=== PATIENT | female | born 1985 | race Caucasian/White ===

== ENCOUNTER 2017-01-26 18:17 | Emergency (ER) | payer OTHER ==
[~2017-01-26 18:17] MED LIST: AMOXICILLIN PO; BACTRIM DS TABL1 TA1 PO; BACTROBAN22 GM TP; BIRTH CONTROL PILL PO; CATAPRES0.1 MG; CELEXA20 MG PO; CLARITIN PO; CLEOCIN HCL300 M1 PO; EFFEXOR PO; EFFEXOR75 MG PO; FLAGYL250 M1 PO; FLEXERIL10 MG PO; IBUPROFEN PO; KEFLEX500 M1 PO; KEFLEX500 M2 PO; LISINOPRIL PO; LORTAB 7.5-3251 EACH PO; NAPROSYN500 MG PO; NO MEDICATIONS; NORCO1 TAB 10/3 PO; PREDNISONE10 MG/DOSE PO; PRENATAL MULTIV1 TA1; PRENATAL MULTIV1 TA1 PO; SEPTRA DS PO; SEROQUEL XR200 MG PO; SUDAFED PO; TESSALON200 MG PO; TYLENOL #3 PO; ULTRAM PO; ZOFRAN PO; ZOVIRAX800 MG PO
== END 2017-01-26 18:27 | disposition home or self-care (01) ==
LOC: SED 18:17
DX: J06.9 Acute upper respiratory infection, unspecified (principal); I10 Essential (primary) hypertension; Z90.49 Acquired absence of other specified parts of digestive tract; F17.210 Nicotine dependence, cigarettes, uncomplicated; Z88.2 Allergy status to sulfonamides; Z79.899 Other long term (current) drug therapy
CPT/HCPCS: 99282

== ENCOUNTER 2017-02-27 13:20 | Emergency (ER) | payer OTHER ==
[2017-02-27 14:18] LABS: INFLUENZA A NEG (NEG); INFLUENZA B NEG (NEG)
[2017-02-27 14:30] LABS: URINE SOURCE CLEAN CATCH
[2017-02-27 14:36] LABS: URINE APPEARANCE CLEAR; URINE BILIRUBIN NEG (NEG); URINE BLOOD NEG (NEG); URINE COLOR YELLOW; URINE GLUCOSE NEG (NEG); URINE KETONE NEG (NEG); URINE LEUKOCYTE ESTERASE NEG (NEG); URINE NITRATE NEG (NEG); URINE PROTEIN NEG (NEG); URINE SPECIFIC GRAVITY 1.012 (1.003-1.035)
[2017-02-27 14:40] LABS: CULTURE INDICATED? NO
== END 2017-02-27 14:56 | disposition home or self-care (01) ==
LOC: CED 13:20
PROVIDERS: Emergency Medicine
DX: R50.9 Fever, unspecified (principal); F32.9 Major depressive disorder, single episode, unspecified; Z90.49 Acquired absence of other specified parts of digestive tract; F17.210 Nicotine dependence, cigarettes, uncomplicated; Z88.2 Allergy status to sulfonamides; Z88.5 Allergy status to narcotic agent; Z79.899 Other long term (current) drug therapy
CPT/HCPCS: 81003; 84703; 87651; 87804; 99283

== ENCOUNTER 2017-03-04 20:47 | Emergency (ER) | payer OTHER ==
--- NOTE | ~2017-03-04 | CT2 ---
[facility] A Service of [facility] & [facility] RADIOLOGY TEXT RESULTS PATIENT: ANAT SANCHEZ LOCATION: [facility] : 81 UNIT #: [id number] AGE: [address]: Thomas Garcia MD SEX: F ORDER DR: [id number] [facility] [address] [place], [place] [address] [id number] MR#: [id number] Acc #: [id number] NAME: ANAT SANCHEZ : 1985 SEX: F STUDY DATE/TIME: 03/04/2017 22:47 UNIT: [facility] ROOM: STUDY DESCRIPTION: CT Abd and Pelv W Cont Attending Physician: Thomas Garcia M.D. Ordering Physician: Thomas Garcia M.D. Primary Care Physician: Panchito Vegas M.D. MEDICAL IMAGING REPORT This report is preliminary unless electronic signature is present EXAM CT abdomen and pelvis with contrast HISTORY Abdominal pain and nausea for one day. COMPARISON 03/15/2016 TECHNIQUE Axial 5 mm images were obtained of the abdomen and pelvis with IV contrast. The patient was given 100 mL of Isovue 370. This CT exam was performed with one or more of the following radiation dose reduction techniques: automatic exposure control, adjustment of mA and/or kV according to patient size, and iterative reconstruction. FINDINGS The lung bases are clear. The liver, gallbladder, spleen, pancreas, adrenal glands and kidneys are normal. The aorta is normal in size and there is no adenopathy. There is a small amount of fluid in the left upper quadrant around the spleen and left pericolic gutter. There is fluid filling the deep pelvis behind the uterus. This is uniform and low in density. The bowel appears normal. The uterus appears normal and no ovarian cysts are visible. The bones are unremarkable. IMPRESSION 1. The study is abnormal with fluid filling not only the pelvis behind the uterus, but also fluid is noted up around the spleen and the left pericolic gutter. The fluid is all uniform and low in density. A source of the fluid is not clear and in a patient of this age, a ruptured ovarian cyst may be the most likely cause of free fluid. 2. I do not see any evidence of bowel inflammation and there is no free STS. [facility] A Service of [facility] & [facility] RADIOLOGY TEXT RESULTS PATIENT: ANAT SANCHEZ LOCATION: [facility] : 81 UNIT #: [id number] AGE: [address]: Thomas Garcia MD SEX: F ORDER DR: . Dictated by... Darion Reddy M.D. THIS IS AN ELECTRONICALLY VERIFIED REPORT Darion Reddy M.D. at 03/05/2017 1:53 PM FEL/to TD: 03/05/2017 10:49 JOB #: [id number] MEDICAL IMAGING REPORT Page 1 of 1 COPY
[2017-03-04 22:01] LABS: BASOPHIL% 0.7 % (0-2.5); EOSINOPHIL# 0.2 X10e3 (0-0.7); EOSINOPHIL% 4.9 % (0.0-7.0); HEMATOCRIT 32.3 % (35.0-45.0); HEMOGLOBIN 11.2 gm/dL (12.0-16.0); LYMPHOCYTE# 1.5 X10e3 (1.0-3.5); MEAN CELL VOLUME 88.9 FL (83-96); MEAN CORPUSCULAR HEMOGLOBIN 30.9 PG (28-34); MEAN CORPUSCULAR HGB CONC 34.7 g/dL (30-36); MEAN PLATELET VOLUME 8.2 FL (6.5-11.5); MONOCYTE# 0.7 X10e3 (0-1.0); MONOCYTE% 13.1 % (3.0-12.0); NEUTROPHIL# 2.6 X10e3 (1.5-7.1); NEUTROPHIL% 51.3 % (40-75); PLATELET COUNT 193 X10e3 (140-420); RED BLOOD COUNT 3.63 X10e (3.90-5.30); RED CELL DISTRIBUTION WIDTH 12.3 % (11.0-15.5)
[2017-03-04 22:09] LABS: DIFF IND NO
[2017-03-04 22:39] LABS: ALBUMIN SERUM 3.8 g/dL (3.5-5.0); ALKALINE PHOSPHATASE 69 U/L (32-92); ALT (SGPT) 20 U/L (10-40); AMYLASE 17 U/L (0-46); AST (SGOT) 21 U/L (10-42); BILIRUBIN,TOTAL 0.3 mg/dL (0.2-2.0); BLOOD UREA NITROGEN 8 mg/dL (9-23); BUN/CREATININE RATIO 11.42; CARBON DIOXIDE 29 mmol/L (22-31); CHLORIDE 101 mmol/L (100-111); CREATININE SERUM 0.7 mg/dL (0.6-1.4); GLOM FILT RATE Estimated 113.8 mL/min (>60); GLUCOSE FASTING 96 mg/dL (70-110); LIPASE 17 U/L (22-51); POTASSIUM 3.1 mmol/L (3.5-5.1); SODIUM 137 mmol/L (135-145)
[2017-03-04 22:41] LABS: BILIRUBIN, DIRECT <0.1 mg/dL (0.0-0.2); BILIRUBIN,INDIRECT 0.2 mg/dL (0.0-0.9)
[2017-03-04 23:06] LABS: URINE SOURCE CLEAN CATCH
[2017-03-04 23:12] LABS: URINE APPEARANCE CLEAR; URINE BILIRUBIN NEG (NEG); URINE BLOOD NEG (NEG); URINE COLOR DK YELLOW; URINE GLUCOSE NEG (NEG); URINE KETONE TRACE (NEG); URINE LEUKOCYTE ESTERASE NEG (NEG); URINE NITRATE NEG (NEG); URINE PH 6.5 (5-8); URINE PROTEIN TRACE (NEG); URINE SPECIFIC GRAVITY 1.027 (1.003-1.035)
[2017-03-04 23:19] LABS: CULTURE INDICATED? NO
[2017-03-04 23:22] LABS: AMPHETAMINE POS (NEG); BARBITURATES NEG (NEG); BENZODIAZEPINES NEG (NEG); COCAINE NEG (NEG); MARIJUANA NEG (NEG); OPIATES POS (NEG); TRICYCLIC ANTIDEPRESSANTS NEG (NEG); U METHADONE NEG (NEG)
== END 2017-03-05 00:10 | disposition home or self-care (01) ==
LOC: CED 20:47
PROVIDERS: Emergency Medicine
DX: R10.11 Right upper quadrant pain (principal); R10.31 Right lower quadrant pain; E87.6 Hypokalemia; R82.90 Unspecified abnormal findings in urine; F32.9 Major depressive disorder, single episode, unspecified; Z90.49 Acquired absence of other specified parts of digestive tract; Z98.890 Other specified postprocedural states; F17.200 Nicotine dependence, unspecified, uncomplicated; Z88.2 Allergy status to sulfonamides; Z88.8 Allergy status to other drugs, medicaments and biological substances
CPT/HCPCS: 74177; 80048; 80076; 80307; 81003; 82150; 83690; 84703; 85025; 96361; 96374; 96375; 99284; J1885; J2405; Q9967